=== PATIENT | male | born 1955 | race Caucasian/White ===

== ENCOUNTER 2021-08-24 08:22 | Emergency (ER) | payer OTHER, SELFPAY ==
--- NOTE | ~2021-08-24 | XR_ITS ---
EXAMINATION: XR tibia fibula LT 2V DATE: 08/24/2021 08:53 INDICATION: Left lower leg pain. TECHNIQUE: 2 views of left tibia and fibula on 4 radiographs were obtained. COMPARISON: None. FINDINGS: Bone alignment is normal. No acute fracture. There is an old healed fracture deformity of p roximal fibular diaphysis. There is an old healed fracture deformity of tibial diaphysis with interna l fixation with plate and screws. One of the screws is fractured. No periscrew lucency to suggest loo sening or infection. Joint spaces are normal. No knee joint effusion. IMPRESSION: 1. Old healed fractures of the diaphyses of tibia and fibula with internal fixation of tibia. Reviewed, dictated and finalized at location B. [employer] IMPRESSION: 1. Old healed fractures of the diaphyses of tibia and fibula with internal fixa tion of tibia.
[2021-08-24 08:32] VITALS: BP 148/81; PULSE 84; RESP 18; TEMP 37.1; O2SAT 100
--- NOTE | 2021-08-24 08:37 | ED.LOWEXIN ---
HPI - Extremity Injury (Lower) General Chief Complaint: Extremity Injury, Lower Stated Complaint: Leg pain Time Seen by Provider: 08/24/21 08:37 Source: patient, family and RN notes reviewed History of Present Illness HPI Narrative: Patient is a 65-year-old male who presents the urgent care with his spouse with complaints of left tib-fib pain. Patient states that in 1984 he had screws and plates in the left tib-fib after an accident. Patient states he has had increased pain with a reddened area for the last week. 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 Patient states that he has been taking Advil for the pain. Denies of any radiation of the pain. Patient states that he is concerned that there may be an infection in the hardware . Patient denies of any fever, chills, nausea, vomiting, changes in the reddened area. No other acute complaints. No acute distress noted. Patient aware of the plan of care. Some parts of this dictation were generated by voice recognition software and may contain typographical and/or grammatical inaccuracies. Related Data Home Medications Medication Instructions Recorded Confirmed No Home Medications 08/24/21 08/24/21 Allergies Allergy/AdvReac Type Severity Reaction Status Date / Time No Known Allergies Allergy Verified 08/24/21 08:50 Review of Systems Review of Systems: CONSTITUTIONAL: Denies fever, chills, or sweats. EYES: Denies visual changes, redness, or discharge. ENT: Denies rhinorrhea, congestion, sore throat, or otalgia. CARDIOVASCULAR: Denies chest pain, palpitations, or edema. RESPIRATORY: Denies cough or dyspnea. GASTROINTESTINAL: Denies abdominal pain, nausea, vomiting, or diarrhea. GENITOURINARY: Denies dysuria or hematuria. SKIN: Denies rash or itching. MUSCULOSKELETAL: Reports of redness and pain to the anterior aspect of the left lower leg NEUROLOGIC: Denies headache, numbness, or weakness. All other systems reviewed are negative, except as documented in HPI. PMFSH Comments At the time of my signature, I reviewed and agree with the nursing past medical, surgical, social, and family history. There is no relevant family history pertinent to the patient complaint. Exam Narrative: GENERAL: This is a well-nourished, well-developed patient, in no apparent distress. HEAD: normocephalic, atraumatic. EYES: PERRL. Sclera clear/white. Vision is grossly intact. EARS: External ears normal NOSE: External nose normal with no obvious nasal discharge, nares without redness, no rhinorrhea. THROAT: Mucous membranes moist NECK: Neck supple CARDIOVASCULAR: Regular rate and rhythm without murmurs, gallops, or rubs. RESPIRATORY: Clear to auscultation. Breath sounds equal bilaterally. No wheezes, rales, or rhonchi. SKIN: 4 x 4 centimeter firm mildly erythemic what appears to be a hematoma to the anterior aspect of the midshaft of the left tib-fib., With mild to moderate tenderness. Warm, intact with no suspicious lesions or rash, good texture and turgor. NEURO: awake, alert, and oriented to person, place and time. There were no obvious focal neurologic abnormalities. EXTREMITIES: Range of motion to left lower extremity within normal limits with positive strong left pedal pulse and capillary refill less than 2 seconds. No obvious deformity or injury noted to the extremity. Ambulates without difficulty. Course Vital Signs Vital signs: Vital Signs Temperature 98.8 F 08/24/21 08:32 Pulse Rate 84 08/24/21 08:32 Respiratory Rate 18 08/24/21 08:32 Blood Pressure 148/81 H 08/24/21 08:32 Pulse Oximetry 100 08/24/21 08:32 Temperature 98.8 F 08/24/21 08:32 Pulse Rate 84 08/24/21 08:32 Respiratory Rate 18 08/24/21 08:32 Blood Pressure 148/81 H 08/24/21 08:32 Pulse Oximetry 100 08/24/21 08:32 Reviewed-patient is informed that they may have pre-hypertension or hypertension based on a blood pressure re
== END 2021-08-24 09:10 | disposition home or self-care (01) ==
PROVIDERS: Emergency Provider Nurse Practitioner Family
DX: M79.662 Pain in left lower leg (principal); T85.698A Other mechanical complication of other specified internal prosthetic devices, implants and grafts, initial encounter; K70.30 Alcoholic cirrhosis of liver without ascites; Z86.19 Personal history of other infectious and parasitic diseases
CPT/HCPCS: 73590; 99213; G0463